=== PATIENT | female | born 1940 | race Caucasian/White ===

== ENCOUNTER → 2017-11-25 11:15 | Outpatient (CLI) | payer MEDICARE, OTHER, SELFPAY ==
[2017-11-25 11:57] LABS: Add Manual Diff / Slide Review NO; Basophils Percent Auto 0.9 % (0-2); Eosinophils Percent Auto 1.6 % (2-4); Hematocrit 39.7 % (36-46); Hemoglobin 13.4 g/dL (12.0-16.0); Lymphocytes Percent Auto 30.1 % (25-40); Mean Corpuscular HGB Conc 33.7 % (30-36); Monocytes Percent Auto 6.6 % (3-14); Neutrophils Absolute Auto 4300 /uL (3000-5900); Neutrophils Percent Auto 60.8 % (50-75); Platelet Count 263 X10^3/uL (150-400); Red Blood Cell Count 4.18 X10^6/uL (4.0-5.2); Red Cell Distribution Width 14.7 % (11.6-14.8); White Blood Cell Count 7.1 X10^3/uL (4.5-11.0)
[2017-11-25 12:10] LABS: Erythrocyte Sedimentation Rate 42 MM/HR (0-20)
[2017-11-25 12:31] LABS: Alanine Aminotransferase 23 IU/L (9-52); Albumin 4.2 g/dL (3.5-5.0); Albumin Globulin Ratio 1.3 (1.0-2.8); Alkaline Phosphatase 94 U/L (38-126); Aspartate Aminotransferase 18 IU/L (14-36); BUN Creatinine Ratio 22.2 (6-22); Bilirubin Total 0.7 mg/dL (0.2-1.3); Blood Urea Nitrogen 20 mg/dL (7-17); C-Reactive Protein Quant 1.8 mg/dL (<1.0); Calcium 9.5 mg/dL (8.4-10.2); Carbon Dioxide 31 mmol/L (22-32); Chloride 99 mmol/L (98-107); Estimated Glomerular Filt Rate > 60.0 mL/min (>60); Globulin 3.3 g/dL (1.7-4.1); Glucose 94 mg/dL (80-110); HEMOLYSIS < 15 (0-50); Potassium 4.5 mmol/L (3.4-5.1); Sodium 140 mmol/L (137-145); Total Protein 7.5 g/dL (6.3-8.2); Uric Acid 5.3 mg/dL (2.5-6.2)
== END ==
PROVIDERS: PCP Physician Assistant
DX: M10.9 Gout, unspecified (principal)
CPT/HCPCS: 36415; 80053; 84550; 85025; 85651; 86140

== ENCOUNTER → 2018-02-05 09:22 | Outpatient (CLI) | payer MEDICARE, OTHER, SELFPAY ==
[2018-02-05 11:01] LABS: Add Manual Diff / Slide Review NO; Basophils Percent Auto 1.1 % (0-2); Eosinophils Percent Auto 1.9 % (2-4); Hematocrit 40.3 % (36-46); Hemoglobin 13.3 g/dL (12.0-16.0); Lymphocytes Percent Auto 29.2 % (25-40); Mean Corpuscular Hemoglobin 31.5 PG (26-34); Mean Corpuscular Volume 95.3 fL (80-100); Monocytes Percent Auto 6.5 % (3-14); Neutrophils Absolute Auto 4000 /uL (3000-5900); Neutrophils Percent Auto 61.3 % (50-75); Platelet Count 289 X10^3/uL (150-400); Red Blood Cell Count 4.23 X10^6/uL (4.0-5.2); Red Cell Distribution Width 14.5 % (11.6-14.8); White Blood Cell Count 6.5 X10^3/uL (4.5-11.0)
[2018-02-05 11:21] LABS: Alanine Aminotransferase 21 IU/L (9-52); Albumin Globulin Ratio 1.3 (1.0-2.8); Alkaline Phosphatase 89 U/L (38-126); Aspartate Aminotransferase 18 IU/L (14-36); BUN Creatinine Ratio 18.8 (6-22); Bilirubin Total 0.5 mg/dL (0.2-1.3); Blood Urea Nitrogen 15 mg/dL (7-17); C-Reactive Protein Quant 2.9 mg/dL (<1.0); Calcium 9.5 mg/dL (8.4-10.2); Carbon Dioxide 32 mmol/L (22-32); Chloride 102 mmol/L (98-107); Estimated Glomerular Filt Rate > 60.0 mL/min (>60); Globulin 3.1 g/dL (1.7-4.1); Glucose 103 mg/dL (80-110); HEMOLYSIS < 15 (0-50); Potassium 4.5 mmol/L (3.4-5.1); Sodium 143 mmol/L (137-145); Total Protein 7.1 g/dL (6.3-8.2); Uric Acid 5.6 mg/dL (2.5-6.2)
[2018-02-05 11:56] LABS: Erythrocyte Sedimentation Rate 37 MM/HR (0-20)
== END ==
PROVIDERS: PCP Physician Assistant; Visit Provider Specialist/Technologist Athletic Trainer
DX: M10.9 Gout, unspecified (principal)
CPT/HCPCS: 36415; 80053; 84550; 85025; 85651; 86140

== ENCOUNTER → 2019-12-21 12:17 | Outpatient (CLI) | payer MEDICARE, OTHER, SELFPAY ==
--- NOTE | 2019-12-21 | DI.RAD.S_ITS ---
PROCEDURE: XR LUMBAR SPINE 2-3V INDICATIONS: R QL tightnesss/R Lowers Ribs/Siatica TECHNIQUE: 3 views of the lumbar spine were acquired. COMPARISON: None. FINDINGS: Bones: 5 [id number] vertebrae are present. There is normal bony alignment except for mild grade 1 anterolisthesis of L4 on L5.. No vertebral body compression fractures. No suspicious bony lesions. Degenerative disc disease is mild superiorly at the thoracolumbar junction and at the upper L1-L2 and L 2-L3 levels of the LS spine. At L3-L4 through the L5 S1-1 there is a more moderate degree of degenerative disc disease and moderately severe facet osteoarthritis Soft tissues: No acute disease. IMPRESSION: [id number] degenerative disc disease and moderately severe facet osteoarthritis is present over the LS spine with secondary grade 1 anterolisthesis of L3 on L4. Spinal and foraminal stenosis likely is present from L3 through S1. Dictated by: Mathew Calabrese M.D. on 12/21/2019 at 14:03 Approved by: Mathew Calabrese M.D. on 12/21/2019 at 14:05
== END ==
PROVIDERS: PCP Physician Assistant; Referring Provider Chiropractor; Visit Provider Chiropractor
DX: M51.16 Intervertebral disc disorders with radiculopathy, lumbar region (principal); M47.26 Other spondylosis with radiculopathy, lumbar region; M43.16 Spondylolisthesis, lumbar region
CPT/HCPCS: 72100

== ENCOUNTER → 2020-02-04 10:50 | Outpatient (CLI) | payer MEDICARE, OTHER, SELFPAY ==
--- NOTE | 2020-02-04 | DI.MRI.S_ITS ---
PROCEDURE: MR LUMBAR SPINE WO CON INDICATIONS: SPINAL STENOSIS TECHNIQUE: Noncontrast sagittal T1 spin echo and T2 fast echo, sagittal STIR, axial T1 and T2 fast spin echo through the lumbar spine. In cases with scoliosis, additional coronal T2 fast spin echo may be performed. COMPARISON: [facility], MR, MR THORACIC SPINE WO CON, 02/04/2020, 11:06. [facility], CR, XR LUMBAR SPINE 2-3V, 12/21/2019, 12:26. FINDINGS: Image quality: Excellent. Alignment and Curvature: There is trace retrolisthesis of L2 on L3, L3 on L4, L5 on S1 trace anterolisthesis of L4 on L5. Bone Marrow: Marrow is of normal overall signal. Minimal reactive endplate changes are present at L2-3, L3-4, L4-5 and L5-S1. Focus of increased T1 and T2 signal is present at L1 most suggestive of hemangioma. No acute vertebral body compression fractures. Spinal Cord: Conus medullaris terminates at the L1-L2 level. Visualized cord demonstrates normal signal and size. Paraspinous Soft Tissues: No paravertebral masses. Right renal cyst is present. Discs: Moderate desiccation is present throughout the lumbar spine most severe at L3-4. L1-L2: Minimal disc bulge including a small left foraminal protrusion. No spinal stenosis. No foraminal narrowing. Mild facet and ligamentum flavum hypertrophy with minimal epidural lipomatosis. L2-L3: Mild disc bulge minimal spinal stenosis. Moderate to severe left foraminal narrowing. Mild facet and ligamentum flavum hypertrophy with minimal epidural lipomatosis. L3-L4: Mild disc bulge moderate spinal stenosis. Moderate to severe right and severe left foraminal narrowing. Moderate facet and ligamentum flavum hypertrophy with minimal epidural lipomatosis. L4-L5: Mild disc bulge with severe spinal stenosis and canal flattening. Moderate right and severe left foraminal narrowing with facet and ligamentum flavum hypertrophy. L5-S1: Mild disc bulge with slight right foraminal component. There is mild compromise of the right lateral recess. Severe right and [id number] left foraminal narrowing with mild flattening of the exiting right nerve roots. Facet and ligamentum flavum hypertrophy are present. IMPRESSION: 1. Multilevel spinal stenosis severe at L4-5 and L5-S1 secondary to disc bulge with contributing affective facet/ligamentum flavum arthropathy. 2. Multilevel foraminal narrowing most severe at L3-4, L4-5 and L5-S1 secondary to facet arthropathy. Dictated by: Tiera Neal M.D. on 02/04/2020 at 15:22 Approved by: Tiera Neal M.D. on 02/04/2020 at 15:42
--- NOTE | 2020-02-04 | DI.MRI.S_ITS ---
PROCEDURE: MR THORACIC SPINE WO CON INDICATIONS: SPINAL STENOSIS TECHNIQUE: Noncontrast sagittal T1 spine echo and T2 fast spin echo, sagittal STIR, axial T1 and T2 fast spin echo through the thoracic spine. COMPARISON: None. FINDINGS: Image quality: Excellent. Alignment and Curvature: There is normal bony alignment. Bone Marrow: Marrow is of normal overall signal. No acute vertebral body compression fractures. Spinal Cord: Visualized spinal cord is normal in size and signal. Paraspinous Soft Tissues: No paravertebral masses. Miscellaneous: Mild degenerative disc changes noted throughout the thoracic spine. On axial images, central canal and foramina appear widely patent at all scanned levels. IMPRESSION: 1. Mild multilevel degenerative disease. 2. No central stenosis. 3. No neural foraminal narrowing. 4. No neural compression. Dictated by: Suzan Rice MD, PhD on 02/04/2020 at 12:58 Approved by: Suzan Rice MD, PhD on 02/04/2020 at 13:32
== END ==
PROVIDERS: PCP Physician Assistant; Referring Provider Physician Assistant; Visit Provider Physician Assistant
DX: M51.34 Other intervertebral disc degeneration, thoracic region (principal); M48.061 Spinal stenosis, lumbar region without neurogenic claudication; M48.07 Spinal stenosis, lumbosacral region; M47.816 Spondylosis without myelopathy or radiculopathy, lumbar region; M47.817 Spondylosis without myelopathy or radiculopathy, lumbosacral region; M51.26 Other intervertebral disc displacement, lumbar region; M51.27 Other intervertebral disc displacement, lumbosacral region; N28.1 Cyst of kidney, acquired
CPT/HCPCS: 72146; 72148

== ENCOUNTER → 2021-02-01 09:40 | Outpatient (CLI) | payer MEDICARE, OTHER, SELFPAY ==
[2021-02-01 13:01] LABS: COVID19 -Nasal RAPID POSITIVE (Negative)
== END ==
PROVIDERS: PCP Physician Assistant; Visit Provider Nurse Practitioner
DX: U07.1 COVID-19 (principal)
CPT/HCPCS: 87635